=== PATIENT | male | born 1985 | race Caucasian/White ===

== ENCOUNTER 2017-08-23 08:23 | Emergency (ER) | payer BC, OTHER ==
[2017-08-23 08:42] VITALS: BP 141/77
--- NOTE | 2017-08-23 10:20 | UC ---
Neli Chatman Tenzin, scribed for Dez Wayne MD on 08/23/17 at 0845 . General HPI - HPI Summary HPI Summary: Pt is a 32 years old male presenting to the [facility] complaining of not feeling well since yesterday. Pt notes that he couldnt get out of bed yesterday and notes I think I have strep throat. Pt notes that he was fatigue, fever, chills, congested, JOLLY on the sides of his head. Pt reports the symptoms are different from tonsillitis which he had before. Pt is allergic to Penicillin. - History of Current Complaint Stated Complaint: SORE THROAT Time Seen by Provider: 08/23/17 08:36 Hx Obtained From: Patient Onset/Duration: Still Present Onset Severity: Mild - Allergy/Home Medications Allergies/Adverse Reactions: Allergies Allergy/AdvReac Type Severity Reaction Status Date / Time Penicillins Allergy Rash Verified 08/23/17 08:47 PMH/Surg Hx/FS Hx/Imm Hx - Additional Past Medical History Additional PMH: NEGATIVE: [facility], [place]. - Surgical History Surgery Procedure, Year, and Place: Left wrist surgery - Family History Known Family History: Positive: Hypertension - Father Negative: Cardiac Disease, Diabetes - Social History Alcohol Use: None Substance Use Type: None Smoking Status (MU): Never Smoked Tobacco Review of Systems Constitutional: Fever, Chills, Fatigue Skin: Negative Eyes: Negative ENT: Nasal Discharge, Sinus Congestion Respiratory: Negative Cardiovascular: Negative Gastrointestinal: Negative Genitourinary: Negative Motor: Negative Neurovascular: Negative Musculoskeletal: Negative Neurological: Headache Psychological: Negative All Other Systems Reviewed And Are Negative: Yes - Comments Additional Review of Systems Comments: POSITIVE: JOLLY, FEVER, CHILLS, FATIGUE, RUNNY NOSE AND SINUS CONGESTION. Physical Exam - Summary Physical Exam Summary: General: well-appearing, no pain distress Skin: warm, color reflects adequate perfusion, dry Head: normal Eyes: EOMI, SURENDRA ENT: posterior pharynx erythema, positive cervical lymphadenopathy, positive rhinorrhea. Neck: supple, nontender Respiratory: CTA, breath sounds present Cardiovascular: RRR Abdomen: soft, nontender Bowel: present Musculoskeletal: normal, strength/ROM intact Neurological: sensory/motor intact, A&O x3 Psychological: affect/mood appropriate Triage Information Reviewed: Yes Vital Signs: Initial Vital Signs Temp 99.5 F 08/23/17 08:33 Pulse 82 08/23/17 08:33 Resp 16 08/23/17 08:33 BP 141/77 08/23/17 08:33 Pulse Ox 97 08/23/17 08:33 Vital Signs Reviewed: Yes Course/Dx - Course Course Of Treatment: DISCUSSED CHECKING STREP AND VIRAL VERSES BACTERIAL INFECTION. AT THIS TIME THE PATIENT PREFERS TO START ANTIBIOTICS. F/U PMD IF NOT COMPLETELY IMPROVED; RECHECK SOONER IF WORSE. - Differential Dx - Multi-Symptom Provider Diagnoses: PHARYNGITIS Discharge - Sign-Out/Discharge Documenting (check all that apply): Discharge/Admit/Transfer - Discharge - Discharge Plan Condition: Stable Disposition: HOME Prescriptions: Azithromyxin WAYNE (NF) [Z-Wayne (Zithromax) 250 mg tabs #6] 2 tab PO .TODAY, THEN 1 DAILY #6 tab Patient Education Materials: Pharyngitis (ED) Referrals: [facility] [place] [facility] [Outside] Additional Instructions: FOLLOW UP WITH YOUR DOCTOR IF NOT COMPLETELY IMPROVED. GET RECHECKED FOR ANY WORSENING OF YOUR CONDITION OR QUESTIONS OR CONCERNS. - Billing Disposition and Condition Condition: STABLE Disposition: Home The documentation as recorded by the Neli xavier Tenzin accurately reflects the service I personally performed and the decisions made by me, Dez Wayne MD.
== END 2017-08-23 08:46 | disposition home or self-care (01) ==
LOC: UCEAST 08:23
DX: J02.9 Acute pharyngitis, unspecified (principal); R53.83 Other fatigue; R50.9 Fever, unspecified; R51 Headache; R09.81 Nasal congestion; Z88.0 Allergy status to penicillin; Z82.49 Family history of ischemic heart disease and other diseases of the circulatory system
CPT/HCPCS: 99211; G0463